=== PATIENT | female | born 1965 | race Caucasian/White ===

== ENCOUNTER 2019-10-11 17:05 | Emergency (ER) | payer BC ==
[~2019-10-11] VITALS: Ht 157.5 cm; Wt 68.5 kg
[2019-10-11 17:08] VITALS: Ht 157.5 cm; Wt 68.5 kg
[2019-10-11 17:38] LABS: BASOPHIL % 0.1 % (0-2); PLATELET COUNT 204 x10^3mcL (130-400); RED CELL DISTRIBUTION WIDTH 13.9 % (11.5-14.5)
[2019-10-11 17:47] LABS: ALBUMIN 3.6 g/dL (3.4-5.0); ALKALINE PHOSPHATASE 122 U/L (46-116); ALT/SGPT 32 U/L (14-59); AST/SGOT 48 U/L (15-37); BILIRUBIN TOTAL 1.1 mg/dL (0.20-1.00); CALCIUM 9.6 mg/dL (8.5-10.1); CARBON DIOXIDE 26.3 mmol/L (21-32); CHLORIDE SERUM 99 mmol/L (98-107); CREATININE SERUM 0.8 mg/dL (0.6-1.0); GFR1 > 60 mL/min; POTASSIUM SERUM 4.3 mmol/L (3.5-5.1); SODIUM SERUM 134 mmol/L (136-145); TOTAL PROTEIN, SERUM 7.1 g/dL (6.4-8.2)
[2019-10-11 17:51] LABS: GLUCOSE SERUM 489 mg/dL (74-106)
[2019-10-11 18:34] VITALS: BP 146/94
== END 2019-10-11 18:34 | disposition short-term general hospital (02) ==
LOC: ED 17:05
PROVIDERS: Student in an Organized Health Care Education/Training Program
DX: I21.3 ST elevation (STEMI) myocardial infarction of unspecified site (principal); I10 Essential (primary) hypertension; E11.9 Type 2 diabetes mellitus without complications
CPT/HCPCS: 85378; J1644; Q0092